=== PATIENT | male | born 2000 | race Caucasian/White ===

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

== ENCOUNTER 2020-07-23 08:33 | Outpatient (CLI) | payer MEDICAID | END 2020-07-23 23:59 | disposition home or self-care (01) | LOC: RAD 08:33 | PROVIDERS: ATTEND Physician Assistant Medical | DX: R55 Syncope and collapse (principal) | CPT/HCPCS: 95816 ==

== ENCOUNTER 2020-08-05 00:59 | Inpatient (IN) | payer MEDICAID ==
[~2020-08-05] VITALS: Ht 177.8 cm; Wt 54.5 kg
[2020-08-05] VITALS (17 sets, daily range): BP systolic 99–142; BP diastolic 54–85
[2020-08-05 01:42] LABS: BASOPHILS # (AUTO) 0.1 X10'3 (0-0.2); BASOPHILS % (AUTO) 0.5 % (0-1); EOSINOPHILS # (AUTO) 0.2 X10'3 (0-0.9); EOSINOPHILS % (AUTO) 1.6 % (0-6); HEMATOCRIT 43.9 % (42.0-52.0); HEMOGLOBIN 15.2 g/dl (14.0-17.9); LYMPHOCYTES # (AUTO) 3.3 X10'3 (1.1-4.8); LYMPHOCYTES % (AUTO) 23.5 % (21-51); MEAN CORPUSCULAR HEMOGLOBIN 31.2 PG (27.0-31.0); MEAN CORPUSCULAR HGB CONC 34.5 g/dL (33.0-36.5); MEAN CORPUSCULAR VOLUME 90.5 FL (78-98); MEAN PLATELET VOLUME 8.7 FL (7.4-10.4); MONOCYTES % (AUTO) 6.8 % (2-12); NEUTROPHILS # (AUTO) 9.6 X10'3 (1.8-7.7); NEUTROPHILS % (AUTO) 67.6 % (42-75); PLATELET COUNT 294 X10'3 (140-440); RED BLOOD COUNT 4.85 X10'6 (4.70-6.10); RED CELL DISTRIBUTION WIDTH 12.2 % (11.5-14.5); WHITE BLOOD COUNT 14.1 X10'3 (4.5-11.0)
[2020-08-05 01:49] LABS: ALANINE AMINOTRANSFERASE 31 U/L (12-78); ALBUMIN 4.3 G/DL (3.4-5.0); ALBUMIN/GLOBULIN RATIO 1.4 (1.1-1.5); ALKALINE PHOSPHATASE 85 IU/L (20-180); ANION GAP 8 (8-16); ASPARTATE AMINO TRANSFERASE 24 U/L (10-37); BILIRUBIN,TOTAL 0.4 MG/DL (0.1-1.0); BLOOD UREA NITROGEN 12 MG/DL (7-18); BUN/CREATININE RATIO 12.9 (5.4-32.0); CALCIUM 9.3 MG/DL (8.5-10.1); CHLORIDE 104 MMOL/L (99-107); CREATININE 0.93 MG/DL (0.60-1.10); GLUCOSE 102 MG/DL (70-104); LIPASE 58 U/L (73-393); POTASSIUM 4.1 MMOL/L (3.5-5.1); SODIUM 142 MMOL/L (135-145); TOTAL CARBON DIOXIDE 29.6 MMOL/L (24-32); TOTAL PROTEIN 7.4 G/DL (6.4-8.2); eGFR > 90 ML/MIN
[2020-08-05 01:51] LABS: CLARITY,URINE CLEAR (Clear); COLOR,URINE YELLOW (Yellow); GLUCOSE, URINE NEGATIVE (Neg); KETONES,URINE NEGATIVE (Neg); LEUKOCYTE ESTERASE ,URINE NEGATIVE (Neg); NITRITES, URINE NEGATIVE (Neg); OCCULT BLOOD,URINE NEGATIVE (Neg); PROTEIN,URINE NEGATIVE (Neg); UA COLLECTION TYPE CLN CATCH MIDSTREAM; UROBILINOGEN,URINE 0.2 E.U/dL (0.2-1.0)
--- NOTE | 2020-08-05 06:24 | NUR ---
PT MOVED FROM ROOM 17 TO 10
[2020-08-05] MEDS ORDERED: normal saline 1000ml 1,000 ML IV ONE (06:35)
[2020-08-05] MEDS ORDERED: NO HOME MEDS (06:52)
[2020-08-05] MEDS: ceFAZolin/D5W- 1GM premix 50 ML IV SCH ×2 (07:37→17:32)
[2020-08-05] MEDS ORDERED: potassium Cl 40MEQ/1/2NS 520ml 520 ML IV PRN ×2 (08:25)
[2020-08-05] MEDS ORDERED: potassium Cl 20 mEq SR tablet PO PRN ×2 (08:25)
[2020-08-05] MEDS ORDERED: magnesium 2GM in 50ml NS 50 ML IV PRN (08:25)
[2020-08-05] MEDS ORDERED: acetaminophen 325mg tablet PO PRN (08:25)
[2020-08-05] MEDS ORDERED: ondansetron/PF 4mg/2ml inj IV PRN ×2 (08:25→14:15)
[2020-08-05] MEDS ORDERED: magnesium Cl slow-release 64mg tablet PO PRN (08:25)
[2020-08-05] MEDS ORDERED: magnesium 4gm in 100ml NS 100 ML IV PRN (08:25)
[2020-08-05] MEDS: K and/or MAG REPLACEMENT MC SCH (09:24)
[2020-08-05] MEDS: normal saline 1000ml 1,000 ML IV SCH ×2 (10:15→17:32)
[2020-08-05] MEDS: levoFLOXACIN-Levaquin 500mg/D5 100 ML IV SCH (11:36)
--- NOTE | 2020-08-05 11:59 | NUR ---
Received report from AKASH Watson, awaiting pt arrival to 352
[2020-08-05] MEDS ORDERED: BUPIVAcaine/PF 2.5 mg/ml (0.25%) 30ml vial ONE (13:36)
--- NOTE | 2020-08-05 14:01 | NUR ---
Discovered Pt had been taken to OR while I was on lunch. US took message but no RN was notified, so no pre-op accu check was done. Report called at this time to
[2020-08-05] MEDS ORDERED: fentaNYL/PF 50MCG/1 ML 2ML syringe ONE (14:08)
[2020-08-05] MEDS ORDERED: midazolam 1 mg/ML 2ml injection ONE (14:08)
[2020-08-05] MEDS ORDERED: rocuronium 10mg/ml inj IV ONE (14:08)
[2020-08-05] MEDS ORDERED: sevoflurane 250ml liquid IH ONE (14:09)
[2020-08-05] MEDS ORDERED: levoFLOXACIN/D5W 500mg/100ml bag IV ONE (14:09)
[2020-08-05] MEDS ORDERED: propofol inj 20 ML IV ONE (14:09)
[2020-08-05] MEDS ORDERED: morphine 2 MG/ML inj. syringe IV PRN (14:15)
[2020-08-05] MEDS ORDERED: ringers solution, lacted 1,000 ML IV SCH (14:15)
[2020-08-05] MEDS ORDERED: meperidine/PF 25mg/ml syringe IV PRN ×3 (14:15)
[2020-08-05] MEDS ORDERED: morphine 4 MG/ML inj SYRINge IV PRN (14:15)
[2020-08-05] MEDS ORDERED: proCHLORperazine 10 MG/2 ml inj IV PRN (14:15)
[2020-08-05] MEDS ORDERED: glycopyrrolate 0.2mg/ml inj ONE (15:15)
[2020-08-05] MEDS ORDERED: neostigmine methylsulfate 1 MG/ML 10ml vial ONE (15:15)
[2020-08-05] MEDS ORDERED: dexamethasone sod phosphate 4mg/ml inj. ONE (15:16)
[2020-08-05] MEDS ORDERED: ondansetron/PF 4mg/2ml inj ONE (15:16)
--- NOTE | 2020-08-05 16:25 | NUR ---
PATIENT HAS MET ALL CRITERIA FOR TRANSFER TO THE SURGICAL/SCOTT/PCU/ORTHO/ICU FLOOR. VSS. DRESSINGS INTACT. BED LOW, CALL LIGHT PRESENT AND 2 RAILS UP. RN PRESENT TO ACCEPT CARE OF PATIENT AND REPORT HAS BEEN CALLED. ALL QUESTIONS ANSWERED TO ACCEPTING RN. REPORT GIVEN TO RN MONICA LOVETT. PATIENT STILL CO PAIN TO ABDOMINAL AREA. CANNOT DIFFERENTIATE BETWEEN CO2 RELATED PAIN FROM LAP SITES OR OTHER PAIN. PATIENT WITH SLIGHT RAISED HIVES TO RIGHT BICEP AREA. RN MONICA AWARE OF THIS FINDING. PATIENT WAS GIVEN IV ZOFRAN PRIOR TO TRANSFER TO THE FLOOR. BED LOW AND RN TO ASSESS. MOTHER AT BEDSIDE. ALL PATIENT BELONGINGS IN PATIENT BEDROOM Addendum: 08/05/20 at 1629 by Jose Valladares - SAMINA RN Amended: Links added.
--- NOTE | 2020-08-05 18:00 | NUR ---
Patient in room [facility]. I have received report from SAMINA Cotto and had the opportunity to ask questions and assume patient care.
[2020-08-05] MEDS: HYDROmorphone inj. 0.5 MG/0.5 ML DISP.SYRIN IV PRN ×2 (19:40→23:06)
[2020-08-06 00:26] VITALS: BP 121/62
[2020-08-06] MEDS: normal saline 1000ml 1,000 ML IV SCH ×2 (03:11→14:25)
[2020-08-06] MEDS: HYDROmorphone inj. 0.5 MG/0.5 ML DISP.SYRIN IV PRN ×2 (03:36→08:37)
--- NOTE | 2020-08-06 06:29 | NUR ---
Problems reprioritized. Patient report given, questions answered & plan of care reviewed with SAMINA Carmen.
[2020-08-06 07:04] LABS: BASOPHILS % (AUTO) 0.1 % (0-1); EOSINOPHILS % (AUTO) 0 % (0-6); HEMATOCRIT 38.6 % (42.0-52.0); HEMOGLOBIN 12.9 g/dl (14.0-17.9); LYMPHOCYTES # (AUTO) 0.9 X10'3 (1.1-4.8); LYMPHOCYTES % (AUTO) 5.3 % (21-51); MEAN CORPUSCULAR HEMOGLOBIN 30.5 PG (27.0-31.0); MEAN CORPUSCULAR HGB CONC 33.4 g/dL (33.0-36.5); MEAN CORPUSCULAR VOLUME 91.2 FL (78-98); MEAN PLATELET VOLUME 9.6 FL (7.4-10.4); MONOCYTES # (AUTO) 1.4 X10'3 (0-0.9); MONOCYTES % (AUTO) 8.4 % (2-12); NEUTROPHILS # (AUTO) 14.6 X10'3 (1.8-7.7); NEUTROPHILS % (AUTO) 86.2 % (42-75); PLATELET COUNT 264 X10'3 (140-440); RED BLOOD COUNT 4.23 X10'6 (4.70-6.10); RED CELL DISTRIBUTION WIDTH 12.2 % (11.5-14.5); WHITE BLOOD COUNT 16.9 X10'3 (4.5-11.0)
[2020-08-06 07:18] LABS: ALBUMIN 3.5 G/DL (3.4-5.0); ANION GAP 7 (8-16); BLOOD UREA NITROGEN 8 MG/DL (7-18); CALCIUM 8.7 MG/DL (8.5-10.1); CHLORIDE 103 MMOL/L (99-107); CREATININE 0.73 MG/DL (0.60-1.10); GLUCOSE 123 MG/DL (70-104); MAGNESIUM 1.7 MG/DL (1.5-2.4); POTASSIUM 4.2 MMOL/L (3.5-5.1); SODIUM 137 MMOL/L (135-145); eGFR > 90 ML/MIN
[2020-08-06] MEDS: K and/or MAG REPLACEMENT MC SCH (08:00)
[2020-08-06 08:05] VITALS: BP 111/59
[2020-08-06] MEDS: levoFLOXACIN-Levaquin 500mg/D5 100 ML IV SCH (08:35)
[2020-08-06] MEDS: metroNIDAZOLE-Flagyl 500mg/NS 100 ML IV SCH ×2 (10:57→16:00)
[2020-08-06 11:00] VITALS: BP 111/64
--- NOTE | 2020-08-06 11:30 | NUR ---
Spoke to lawn specialist regarding low HR. RN states she had pt. yesterday and that MD is aware.
[2020-08-06] MEDS ORDERED: ibuprofen 200mg tablet PO PRN (13:25)
[2020-08-06] MEDS ORDERED: IBUP-1985 PO (13:40)
--- NOTE | 2020-08-06 13:47 | NUR ---
Noted pt with a low BMI however current documented wt isn't scaled. Pt denied wt loss or decrease in appetite per malnutrition risk screen with RN. No documented decrease in muscle strength or edema. Pt appears well developed well nourished per ED report. Pt currently lacks a minimum of two criteria for malnutrition. Will continue to follow. Addendum: 08/06/20 at [address] Amended: Links added.
--- NOTE | 2020-08-06 17:28 | NUR ---
DISCHARGE NOTE: Pt. able to ambulate independently. Still on CL diet but discussed advancing diet slowly with pt. Incisional care directions given to pt. Discharge paperwork reviewed with pt. girlfriend and Mother. Pt. had good verbal feedback. Had the opportunity to ask questions. Discussed discharge medications- Motrin and possible ASE. Pt. knows to eat with food. Discussed surgeons post op instruction- no high contact sports, weight restriction. Pt. verbalized s/sx infection and reasons why he would need to notify MD. IV DC'd, cannula intact, pressure bandage applied, no s/sx bleeding noted. Pt. aware to f/u with [facility] and contact information has been written down for him. Pt. leaving with family. Escorted by staff members downstairs to discharge home. Denies having any home meds or belongings stored in hospital and is taking any belongings with him.
[2020-08-06] MEDS ORDERED: lactobacillus rhamnosus 10,000 MMU CELLS/CAPSULE PO SCH (20:00)
== END 2020-08-06 17:38 | disposition home or self-care (01) | DRG 233 ==
LOC: ER 01:01 → ED HOLD 08:25 → SUR 3N 12:07
PROVIDERS: ADMIT Internal Medicine; ATTEND Internal Medicine
PROC: 0WJG4ZZ Inspection of Peritoneal Cavity, Percutaneous Endoscopic Approach (ICD-10-PCS; 2020-08-05)
PROC: 07BC4ZX Excision of Pelvis Lymphatic, Percutaneous Endoscopic Approach, Diagnostic (ICD-10-PCS; 2020-08-05)
PROC: 0DTJ4ZZ Resection of Appendix, Percutaneous Endoscopic Approach (ICD-10-PCS; principal; 2020-08-05 14:09)
DX: K35.30 Acute appendicitis with localized peritonitis, without perforation or gangrene (principal); K66.1 Hemoperitoneum; Z87.891 Personal history of nicotine dependence; Z20.822 Contact with and (suspected) exposure to COVID-19
CPT/HCPCS: 36415; 71045; 74176; 80048; 80053; 81003; 83690; 83735; 85025; 87081; 87635; 96361; 99285; A4215; A4618; A7000; C9803; G0378; J0690; J1100; J1170; J1956; J2175; J2250; J2270; J2405; J2704; J2710; J3010; J3490; J7030; J7120